=== PATIENT | female | born 1955 | race Caucasian/White ===

== ENCOUNTER → 2017-03-26 | Outpatient (CLI) | payer OTHER ==
[2016-02-07 14:30] VITALS: BMI 29.8
[~2017-03-26] MED LIST: ACET500T68 PO; ASPI-757 PO; BLOO-1318 MC; BLOO-1337 MC; CALC-707 PO; CELE-1 PO; DIA5 PO; HYDR-318 PO; HYDR-4308 PO; IBUP800T37 PO; LANC-1149 MC; MELO-207 PO; OMEP-125 PO; OMEP-137 PO; TRAM-420 PO; naprosyn
[2017-03-26 12:20] LABS: PLATELET COUNT, AUTOMATED 212 K/uL (150-450)
[2017-03-26 12:25] LABS: LDL CHOLESTEROL 129 mg/dl
== END ==
LOC: LAB 10:20
PROVIDERS: ATTEND Emergency Medicine
DX: Z00.00 Encounter for general adult medical examination without abnormal findings (principal)
CPT/HCPCS: 36415; 82040; 82247; 82310; 82374; 82435; 82465; 82565; 82947; 83036; 83718; 84075; 84132; 84155; 84295; 84443; 84450; 84460; 84478; 84520; 85025

== ENCOUNTER → 2017-04-25 | Outpatient (CLI) | payer OTHER ==
[2016-02-07 14:30] VITALS: BMI 29.8
[~2017-04-25] MED LIST changes: +ATOR40TA24 PO
== END ==
LOC: LAB 08:54
PROVIDERS: ATTEND Emergency Medicine
DX: M85.80 Other specified disorders of bone density and structure, unspecified site (principal); Z91.89 Other specified personal risk factors, not elsewhere classified
CPT/HCPCS: 36415; 82306; 82465; 83718; 84478

== ENCOUNTER → 2017-05-02 | Outpatient (CLI) | payer OTHER ==
[2016-02-07 14:30] VITALS: BMI 29.8
== END ==
LOC: LAB 09:48
PROVIDERS: ATTEND Otolaryngology
DX: D49.0 Neoplasm of unspecified behavior of digestive system (principal)
CPT/HCPCS: 36415; 82565

== ENCOUNTER → 2017-05-06 | Outpatient (CLI) | payer OTHER ==
[2016-02-07 14:30] VITALS: BMI 29.8
--- NOTE | 2017-05-07 10:45 | RADIOLOGY IMAGING REPORT ---
FACILITY: [facility] PATIENT NAME: TYLER LAND : [id number] MR: [id number] V: [id number] EXAM DATE: [id number] ORDERING PHYSICIAN: MARLI KRAMER TECHNOLOGIST: Abi Butler PROCEDURE:BILATERAL DIGITAL SCREENING MAMMOGRAM WITH CAD ASSISTED INTERPRETATION & 3D TOMOSYNTHESIS COMPARISON:Prior mammograms dated 03/06/15, 11/30/13, 04/16/12, 01/08/11 INDICATIONS:SCREENING FINDINGS: A small amount of fibroglandular tissue is seen throughout the breasts. The parenchymal pattern has remained stable allowing for difference in mammographic technique & patient positioning. There is no evidence of malignant appearing mass, malignant appearing calcification or other secondary sign of malignancy in either breast. DIAGNOSTIC CATEGORY 1--NEGATIVE. RECOMMENDATIONS: ROUTINE MAMMOGRAM AND CLINICAL EVALUATION. IMPRESSION: BIRADS 1: Negative. No significant abnormality is seen. Dictated by: Janice Smart M.D. on 05/06/2017 at 16:06 Transcribed by: LACEY on 05/07/2017 at 7:11 Approved by: Janice Smart M.D. on 05/07/2017 at 10:44 [facility]
== END ==
LOC: MAMO 01:25
PROVIDERS: ATTEND Emergency Medicine
DX: Z12.31 Encounter for screening mammogram for malignant neoplasm of breast (principal)
CPT/HCPCS: 77063; 77067

== ENCOUNTER → 2017-05-19 | Outpatient (CLI) | payer OTHER ==
[2016-02-07 14:30] VITALS: BMI 29.8
[~2017-05-19] MED LIST changes: +IOPAMIDOL 76% 75 ML INFUS BTL 75 ML ONE
--- NOTE | 2017-05-19 10:50 | RADIOLOGY IMAGING REPORT ---
[place] [facility] [place] Christine Dobbins : 1955 MR: [id number] V: [id number] EXAM DATE: ORDERING PHYSICIAN: MARLI KRAMER TECHNOLOGIST: Location: [facility] Patient: Christine Dobbins : 1955 Visit/Account:[id number] Date of Sevice: 05/19/2017 BONE MINERAL DENSITY HISTORY: osteopenia COMPARISON: DEXA 11/30/2013 FINDINGS: LUMBAR SPINE: Bone mineral density (BMD) measured from L1-L4 correlates with a Z-score of -1.1 and a T-score of -2. 4 which is osteopenia as defined by the World Health Organization. The corresponding risk of fractur e in the lumbar spine is 6X compared with a young adult reference population. This value has decreas ed by 2.3% since the prior study. More than 5% change is considered significant. HIP: Bone mineral density (BMD) measured in the left total hip region correlates with a Z-score of -1.2 an d a T-score of -2.2 which is osteopenia as defined by the World Health Organization. The correspondi ng risk of fracture in the hip is 5X compared with a young adult reference population. This value gonzalez s decreased by 0.8% since the prior study. More than 5% change is considered significant. Bone mineral density (BMD) measured in the left Femoral Neck region measures 0.732 g/cm2. IMPRESSION: 1. Lumbar spine: Osteopenia. There has been no significant change in the bone mineral density sinc e the previous exam. 2. Left Total Hip: Osteopenia. There has been no significant change in the bone mineral density si nce the previous exam. 3. Left Femoral Neck: Bone Mineral Density is 0.732 g/cm2. The next DEXA scan of this patient should include the following sites: L1-L4, left hip. FRAX? WHO Fracture Risk Assessment Tool link: <http://www.shef.ac.uk/FRAX/tool.jsp?locationValue=9> PLEASE NOTE: 1) The World Health Organization defines low BMD as follows: T-score Normal > -1 Osteopenia < -1 and > -2.5 Osteoporosis < -2.5 without fractures Established osteoporosis < -2.5 with fractures 2) In general, you may wish to consider: Diagnosis Treatment Follow-up DEXA Normal BMD Prevention 2-3 years Osteopenia Prevention/therapy 1-2 years Osteoporosis Therapy Yearly 3) Fracture risk estimated from the T-score is more accurate for vertebral fractures (often spontane ous) than for hip fractures. Report Dictated By: David Roth DO at 05/19/2017 10:45 AM Report E-Signed By: David Roth DO at 05/19/2017 10:47 AM WSN:[id number]
--- NOTE | 2017-05-19 10:54 | RADIOLOGY IMAGING REPORT ---
[place] [facility] [place] NAME: Christine Dobbins : 1955 MR: [id number] V: [id number] EXAM DATE: ORDERING PHYSICIAN: JOHANN RENEE TECHNOLOGIST: Location: [facility] - [place] Patient: Christine Dobbins : 1955 Visit/Account:[id number] Date of Sevice: 05/19/2017 EXAMINATION: CT neck with IV contrast History: Suspected parotid mass. COMPARISON STUDIES: none . TECHNIQUE: Spiral scan was obtained from the hard palate through the upper chest during injection o f nonionic iodinated intravenous contrast. One of the following dose optimization techniques was util ized in the performance of this exam: Automated exposure control; adjustment of the mA and/or kV acco rding to the patient's size; or use of an iterative reconstruction technique. Specific details can be referenced in the facility's radiology CT exam operational policy. Contrast: 75 mL of IV Isovue-370. FINDINGS: Suprahyoid neck: negative Infrahyoid neck: 4 mm nodule right lobe of the thyroid. Airway: negative Lymph node assessment: negative Visualized orbits / brain / paranasal sinuses: negative Vessels: Vessels Bony structures: Bones Upper chest: negative IMPRESSION: Essentially negative CT of the neck. No evidence of a soft tissue mass or pathologically enlarged ly mph nodes. Report Dictated By: Desmond Johnson MD at 05/19/2017 10:44 AM Report E-Signed By: Desmond Johnson MD at 05/19/2017 10:49 AM WSN:[id number]
== END ==
LOC: CT 00:58
PROVIDERS: ATTEND Otolaryngology
DX: M85.89 Other specified disorders of bone density and structure, multiple sites (principal)
CPT/HCPCS: 70491; 77080; Q9967

== ENCOUNTER → 2017-07-23 | Outpatient (CLI) | payer OTHER ==
[2016-02-07 14:30] VITALS: BMI 29.8
[~2017-07-23] MED LIST changes: -IOPAMIDOL 76% 75 ML INFUS BTL 75 ML ONE
[2017-07-23 09:31] LABS: PLATELET COUNT, AUTOMATED 202 K/uL (150-450)
--- NOTE | 2017-07-23 10:36 | RADIOLOGY IMAGING REPORT ---
FACILITY: [facility] - [place] PATIENT NAME: Christine Dobbins : 1955 MR: [id number] V: [id number] EXAM DATE: ORDERING PHYSICIAN: MARLI KRAEMR TECHNOLOGIST: Location: [facility] - [place] Patient: Christine Dobbins : 1955 Visit/Account:[id number] Date of Sevice: 07/23/2017 Chest with lateral, two views. HISTORY: Hypoxia. COMPARISON: 10/06/2015. Bronchial vascular markings are slightly crowded due to a suboptimal inspiration. The heart and medi astinum are unremarkable. Pulmonary vessels are otherwise unremarkable. The lungs are otherwise colleen ar. The pleural surfaces are unremarkable. No pneumothorax. Mild degenerative changes are present in the spine. IMPRESSION: No evidence of acute cardiopulmonary disease. Report Dictated By: Asael Ruiz MD at 07/23/2017 10:28 AM Report E-Signed By: Asael Ruiz MD at 07/23/2017 10:31 AM WSN:[id number]
== END ==
LOC: LAB 08:50
PROVIDERS: ATTEND Emergency Medicine
DX: Z01.818 Encounter for other preprocedural examination (principal); R09.02 Hypoxemia
CPT/HCPCS: 36415; 71046; 82040; 82247; 82310; 82374; 82435; 82565; 82947; 83880; 84075; 84132; 84155; 84295; 84450; 84460; 84520; 85025

== ENCOUNTER → 2017-07-29 | Outpatient (CLI) | payer OTHER ==
[2016-02-07 14:30] VITALS: BMI 29.8
== END ==
LOC: RESP 03:02
PROVIDERS: ATTEND Emergency Medicine
DX: J98.4 Other disorders of lung (principal)
CPT/HCPCS: 94060; 94726; 94729

== ENCOUNTER 2017-08-04 01:59 | Day surgery (SDC) | payer OTHER ==
[2016-02-07 14:30] VITALS: Ht 160 cm; Wt 87.5 kg
[~2017-08-04] VITALS: Ht 160 cm; Wt 87.5 kg
[2017-08-04] MEDS ORDERED: NORMOSOL R SOLN(*) 1000 ML BAG 1,000 ML IV PRN (09:30)
[2017-08-04] MEDS ORDERED: LIDOCAINE/SOD BICARB 8.4% SYR ID ONE (09:30)
[2017-08-04] MEDS ORDERED: MIDAZOLAM 2 MG/2 ML VIAL IVP PRN (09:30)
[2017-08-04] MEDS ORDERED: ceFAZolin(*) 2GM/D5W 50ML 50 ML IVPB ONE (09:30)
[2017-08-04 09:32] VITALS: BP 136/86
[2017-08-04] MEDS ORDERED: LIDO/EPI 1% MDV 1:100,000 20ML INFIL ONE (10:54)
[2017-08-04] MEDS ORDERED: DEXTROSE 50% 50 ML SYR IVPB ONE (10:55)
[2017-08-04] MEDS ORDERED: NS 0.9% IVPB ONE (11:15)
[2017-08-04] MEDS ORDERED: DEXTROSE IVPB ONE (11:15)
[2017-08-04] MEDS ORDERED: fentaNYL CITR 100 MCG/2 ML AMP ONE (11:19)
[2017-08-04] MEDS ORDERED: ONDANSETRON 4 MG/2 ML VIAL ONE (11:40)
[2017-08-04] MEDS ORDERED: PROPOFOL EMUL(*) 10MG/ML 20 ML 20 ML ONE (11:40)
[2017-08-04] MEDS ORDERED: DEXAMETHASONE SOD PHOS 10MG/ML ONE (11:40)
[2017-08-04] MEDS ORDERED: EPINEPHrine HCL 1 MG/ML AMP ONE (11:40)
[2017-08-04] MEDS ORDERED: BACITRACIN OINT 0.9 GM PKT TP ONE (11:54)
[2017-08-04] MEDS ORDERED: CEFU500T10 PO (12:32)
[2017-08-04] MEDS ORDERED: HYDR-385 PO (12:36)
[2017-08-04 13:03] VITALS: BP 121/74
[2017-08-04 13:08] VITALS: BP 128/92
[2017-08-04 13:10] VITALS: BP 121/83
--- NOTE | 2017-08-05 03:54 | OPERATIVE REPORT 1 ---
EVENT DATE: August 04, 2017 SURGEON: Darren Nicholson MD ANESTHESIOLOGIST: Masoud Fulton MD ANESTHESIA: LMA PROCEDURE PERFORMED Right postauricular mass excision. PREOPERATIVE DIAGNOSIS Right postauricular mass. POSTOPERATIVE DIAGNOSIS Right postauricular mass. INDICATIONS Please refer to the preoperative note. PROCEDURE The patient was positively identified in the preoperative area. She was accompanied there by her . Risks were again explained, including but not limited to bleeding, infection, recurrence, injury to the facial nerve, transient or permanent facial palsy, Adrian syndrome, and those associated with anesthesia. She acknowledged understanding of those risks. She was then brought back to the operative suite, laid supine on the operative table, and anesthesia was administered. The facial nerve monitor was applied to the patient and utilized throughout the case. The patient had a palpable right 1 cm postauricular mass consistent with a possible tail of the parotid gland mass. A preauricular incision extending around the lobule, including an ellipse of skin overlying the mass and extending into a neck crease greater than two fingerbreadths was marked. Approximately 3 mL of 1% lidocaine with epinephrine was infiltrated. The patient was then prepped and draped in usual sterile fashion. I initially made my incision along the ellipse of skin overlying the mass with a 15 blade. The underlying subcutaneous tissue was then dissected with needle tip Bovie electrocautery. I then carefully dissected down. The mass was found to be superficial to the fascia of the parotid gland. The cyst was excised and sent for permanent pathology. The wound was then copiously irrigated with normal saline solution. The skin was then closed in a multilayer fashion. The patient was then turned to anesthesia for emergence. ESTIMATED BLOOD LOSS Less than 10 mL. COMPLICATIONS No complications. [facility]
== END 2017-08-04 13:04 | disposition home or self-care (01) ==
LOC: OR 01:59
PROVIDERS: ATTEND Otolaryngology
DX: D17.0 Benign lipomatous neoplasm of skin and subcutaneous tissue of head, face and neck (principal); E16.2 Hypoglycemia, unspecified
CPT/HCPCS: 11422; 36416; 82948; 88305; C9399; J0171; J1100; J2405; J2704; J3010; J0690

== ENCOUNTER → 2017-08-22 | Outpatient (CLI) | payer OTHER ==
[2016-02-07 14:30] VITALS: BMI 29.8
[~2017-08-22] MED LIST changes: +CEFU500T10 PO; +HYDR-385 PO
--- NOTE | 2017-08-22 14:20 | RADIOLOGY IMAGING REPORT ---
FACILITY: [facility] - [place] PATIENT NAME: Christine Dobbins : 1955 MR: [id number] V: [id number] EXAM DATE: ORDERING PHYSICIAN: MARLI KRAMER TECHNOLOGIST: [place] [facility] [place]: [place] Dobbins : 1955 Visit/Account:[id number] Date of Sevice: 08/22/2017 EXAMINATION: CT Thorax W/O Contrast With High Resolution imaging 08/22/2017 8:29 AM HISTORY: hypoxia TECHNIQUE: High resolution CT chest protocol: A non-intravenous enhanced contiguous spiral scan was obtained through the chest. This was followed by inspiration and expiration 1 mm thick high-resolutio n axial images at 15 mm intervals, reconstructed using a high spatial resolution algorithm. One of the following dose optimization techniques was utilized in the performance of this exam: Autom ated exposure control; adjustment of the mA and/or kV according to the patient's size; or use of an i terative reconstruction technique. Specific details can be referenced in the facility's radiology C T exam operational policy. COMPARISON STUDIES: CTA chest for PE 03/18/2016. FINDINGS: Lungs / pleura: Lungs are well aerated. No groundglass opacity or significant reticular prominence. No bronchial wall thickening or bronchiectasis. Small granuloma along the pleura in the posterior m edial left lower lobe (series 6, image 52). No significant expiratory airspace trapping in the lungs . Mediastinum / lyudmila: negative Heart / pericardium: negative Vessels: negative Musculoskeletal / Body wall: Degenerative spurring along the spine. Lymph node assessment: negative Lower neck: negative Upper abdomen: Minimal hiatal hernia. 1.3 cm hypodensity laterally in the right lobe of liver presum ably is an incidental cyst or hemangioma. IMPRESSION: Unremarkable high resolution CT evaluation of the chest. No findings of interstitial lung disease or other significant acute process. Report Dictated By: Momo Reddy MD at 08/22/2017 2:09 PM Report E-Signed By: Momo Reddy MD at 08/22/2017 2:15 PM WSN:[id number]
== END ==
LOC: CT 08-15 01:29
PROVIDERS: ATTEND Emergency Medicine
DX: K44.9 Diaphragmatic hernia without obstruction or gangrene (principal); R93.2 Abnormal findings on diagnostic imaging of liver and biliary tract
CPT/HCPCS: 71250

== ENCOUNTER → 2017-10-03 | Outpatient (CLI) | payer OTHER ==
[2016-02-07 14:30] VITALS: BMI 29.8
== END ==
LOC: LAB 08:56
PROVIDERS: ATTEND Emergency Medicine
DX: M85.80 Other specified disorders of bone density and structure, unspecified site (principal)
CPT/HCPCS: 36415; 82310; 83970

== ENCOUNTER → 2017-11-07 | Outpatient (CLI) | payer OTHER ==
[2016-02-07 14:30] VITALS: BMI 29.8
[~2017-11-07] MED LIST changes: +ALEN70TA43 PO
== END ==
LOC: US 04:03
PROVIDERS: ATTEND Internal Medicine
DX: I35.1 Nonrheumatic aortic (valve) insufficiency (principal)
CPT/HCPCS: 93306

== ENCOUNTER → 2017-12-10 | Outpatient (CLI) | payer OTHER ==
[2016-02-07 14:30] VITALS: BMI 29.8
[~2017-12-10] MED LIST changes: -HYDR-4308 PO; +HYDR-654 PO
== END ==
LOC: RESP 02:10
PROVIDERS: ATTEND Internal Medicine
DX: G47.33 Obstructive sleep apnea (adult) (pediatric) (principal)

== ENCOUNTER → 2018-05-18 | Outpatient (CLI) | payer MEDICARE ==
[2016-02-07 14:30] VITALS: BMI 29.8
[2018-05-18 14:58] LABS: PLATELET COUNT, AUTOMATED 215 K/uL (150-450)
[2018-05-18 15:13] LABS: LDL CHOLESTEROL 25 mg/dl
== END ==
LOC: LAB 14:40
PROVIDERS: ATTEND Emergency Medicine
DX: E16.1 Other hypoglycemia (principal); E66.9 Obesity, unspecified; M85.80 Other specified disorders of bone density and structure, unspecified site
CPT/HCPCS: 36415; 82040; 82247; 82306; 82310; 82374; 82435; 82465; 82565; 82947; 83036; 83718; 84075; 84132; 84155; 84295; 84450; 84460; 84478; 84520; 85025